=== PATIENT | female | born 2000 | race Two or more races ===

== ENCOUNTER 2023-11-05 17:20 | Emergency (ER) | payer OTHER ==
[~2023-11-05] VITALS: Ht 167.6 cm; Wt 71.2 kg
[2023-11-05 18:26] LABS: HEMATOCRIT 32.1 % (36.0-45.00); MEAN CELL VOLUME 79.6 fL (80.00-100.00); MEAN CORPUSCULAR HEMOGLOBIN 27.2 pg (27.00-32.0); MEAN CORPUSCULAR HGB CONC 34.1 g/dl (32.0-36.0); PLATELET COUNT 199 K/uL (150-450); RED BLOOD COUNT 4.03 M/uL (4.00-6.00); RED CELL DISTRIBUTION WIDTH 13.6 % (11.5-14.5)
[2023-11-05 18:34] LABS: URINE APPEARANCE Clear; URINE BACTERIA 648.7 uL (0.0-1933); URINE BILIRRUBIN Negative (NEGATIVE); URINE BLOOD Negative; URINE COLOR Yellow; URINE GLUCOSE Negative (NEGATIVE); URINE LEUKOCYTE Trace; URINE NITRATE Negative; URINE PROTEIN Negative (NEGATIVE); URINE RBC 10.2 uL (0.0-20.8); URINE WBC 6.3 uL (0.0-23.2)
[2023-11-05 18:59] LABS: CALCIUM 8.8 mg/dL (8.5-10.1); CREATININE SERUM 0.45 mg/dL (0.55-1.02); GFR 172.66; POTASSIUM 3.52 mEq/L (3.5-5.1)
== END 2023-11-06 01:58 | disposition home or self-care (01) ==
LOC: ER 17:21
PROVIDERS: Emergency Medicine
DX: O99.611 Diseases of the digestive system complicating pregnancy, first trimester (principal); K92.89 Other specified diseases of the digestive system; Z91.013 Allergy to seafood; Z91.040 Latex allergy status; Z3A.12 12 weeks gestation of pregnancy

== ENCOUNTER 2023-12-11 13:49 | Outpatient (CLI) | payer OTHER | END 2023-12-11 13:52 | disposition home or self-care (01) | LOC: PRENATAL 13:49 | PROVIDERS: ATTEND Obstetrics & Gynecology Maternal & Fetal Medicine | DX: O36.80X0 Pregnancy with inconclusive fetal viability, not applicable or unspecified (principal); Z36.82 Encounter for antenatal screening for nuchal translucency; Z36.9 Encounter for antenatal screening, unspecified; Z3A.14 14 weeks gestation of pregnancy ==

== ENCOUNTER 2024-01-11 10:15 | Emergency (ER) | payer OTHER ==
[~2024-01-11] VITALS: Ht 167.6 cm; Wt 75.7 kg
[2024-01-11 11:37] LABS: HEMATOCRIT 30.6 % (36.0-45.00); HEMOGLOBIN 10.4 g/dL (12.0-15.00); MEAN CORPUSCULAR HEMOGLOBIN 27.3 pg (27.00-32.0); MEAN CORPUSCULAR HGB CONC 34.1 g/dl (32.0-36.0); PLATELET COUNT 169 K/uL (150-450); RED BLOOD COUNT 3.82 M/uL (4.00-6.00)
[2024-01-11 11:49] LABS: CALCIUM 9.3 mg/dL (8.5-10.1); CREATININE SERUM 0.47 mg/dL (0.55-1.02); GFR 164.21; POTASSIUM 3.66 mEq/L (3.5-5.1)
== END 2024-01-11 13:32 | disposition home or self-care (01) ==
LOC: ER
DX: O98.512 Other viral diseases complicating pregnancy, second trimester (principal); J32.9 Chronic sinusitis, unspecified; Z91.041 Radiographic dye allergy status; Z91.013 Allergy to seafood; Z3A.19 19 weeks gestation of pregnancy; Z20.822 Contact with and (suspected) exposure to COVID-19

== ENCOUNTER 2024-01-20 08:08 | Outpatient (CLI) | payer OTHER | END 2024-01-20 08:09 | disposition home or self-care (01) | LOC: PRENATAL 08:08 | PROVIDERS: ATTEND Obstetrics & Gynecology Maternal & Fetal Medicine | DX: O35.9XX0 Maternal care for (suspected) fetal abnormality and damage, unspecified, not applicable or unspecified (principal); O35.3XX0 Maternal care for (suspected) damage to fetus from viral disease in mother, not applicable or unspecified; O44.00 Complete placenta previa NOS or without hemorrhage, unspecified trimester; Z3A.20 20 weeks gestation of pregnancy ==

== ENCOUNTER 2024-02-04 12:28 | Outpatient (CLI) | payer OTHER ==
[~2024-02-04] VITALS: Ht 167.6 cm; Wt 78.5 kg
[2024-02-04] MEDS ORDERED: RINGERS SOLUTION,LACTATED 1,000 ML IV SCH ×2 (12:45→13:00)
[2024-02-04] MEDS ORDERED: PRENATAL TABLE1 EAC4 PO (12:56)
[2024-02-04 13:09] LABS: URINE APPEARANCE Clear; URINE BILIRRUBIN Negative (NEGATIVE); URINE BLOOD Negative; URINE COLOR Yellow; URINE GLUCOSE Negative (NEGATIVE); URINE LEUKOCYTE Small; URINE NITRATE Negative; URINE PROTEIN Negative (NEGATIVE); URINE UROBILINOGEN 0.2 E.U./dl
[2024-02-04 13:12] LABS: URINE BACTERIA 3814.8 uL (0.0-1933); URINE EPITHELIAL CELLS 25.3 uL (0.0-38.8); URINE RBC 8.6 uL (0.0-20.8)
[2024-02-04 13:15] LABS: HEMATOCRIT 30.3 % (36.0-45.00); HEMOGLOBIN 10.4 g/dL (12.0-15.00); MEAN CELL VOLUME 80.6 fL (80.00-100.00); MEAN CORPUSCULAR HEMOGLOBIN 27.5 pg (27.00-32.0); MEAN CORPUSCULAR HGB CONC 34.2 g/dl (32.0-36.0); PLATELET COUNT 200 K/uL (150-450); RED BLOOD COUNT 3.77 M/uL (4.00-6.00); RED CELL DISTRIBUTION WIDTH 13.7 % (11.5-14.5)
== END 2024-02-05 09:46 | disposition home or self-care (01) ==
LOC: OBS/DEL 12:28
PROVIDERS: Obstetrics & Gynecology; ATTEND Obstetrics & Gynecology
DX: O26.892 Other specified pregnancy related conditions, second trimester (principal); Z3A.22 22 weeks gestation of pregnancy; O26.849 Uterine size-date discrepancy, unspecified trimester; O60.00 Preterm labor without delivery, unspecified trimester

== ENCOUNTER 2024-05-13 16:04 | Inpatient (IN) | payer OTHER ==
[~2024-05-13] VITALS: Ht 167.6 cm; Wt 2.3 kg
[~2024-05-13 16:04] MED LIST: PRENATAL TABLE1 EAC4 PO
[2024-05-13] MEDS ORDERED: PRENATABS RX T1 EACH PO (16:14)
[2024-05-13] MEDS ORDERED: AMPICILLIN SODIUM 2,000 MG VIAL ONE (16:52)
[2024-05-13 17:01] LABS: HEMOGLOBIN 10.7 g/dL (12.0-15.00); MEAN CORPUSCULAR HEMOGLOBIN 26.7 pg (27.00-32.0); MEAN CORPUSCULAR HGB CONC 33.4 g/dl (32.0-36.0); PLATELET COUNT 147 K/uL (150-450); RED BLOOD COUNT 4.01 M/uL (4.00-6.00); RED CELL DISTRIBUTION WIDTH 14.5 % (11.5-14.5)
[2024-05-13 17:01] LABS: PH,URINE 6.5 (5.0-8.0); URINE APPEARANCE Cloudy; URINE BILIRRUBIN Negative (NEGATIVE); URINE BLOOD Negative; URINE COLOR Yellow; URINE GLUCOSE Negative (NEGATIVE); URINE LEUKOCYTE Small; URINE NITRATE Negative; URINE PROTEIN Negative (NEGATIVE); URINE UROBILINOGEN 0.2 E.U./dl
[2024-05-13 17:05] LABS: URINE EPITHELIAL CELLS 44.3 uL (0.0-38.8); URINE RBC 14.5 uL (0.0-20.8); URINE WBC 65.7 uL (0.0-23.2)
[2024-05-13 17:21] LABS: INR 0.95; PARTIAL THROMBOPLASTIN TIME 28.2 SECONDS (22.0-34.0)
[2024-05-13 17:22] LABS: CALCIUM 9.2 mg/dL (8.5-10.1); CREATININE SERUM 0.42 mg/dL (0.55-1.02); GFR 185.36
[2024-05-13 17:27] LABS: URINE MUCUS SCANT; URINE YEAST FEW /hpf
[2024-05-13] MEDS ORDERED: RINGERS SOLUTION,LACTATED 1,000 ML IV SCH ×2 (17:30→22:45)
[2024-05-13] MEDS ORDERED: CEFAZOLIN SODIUM 1,000 MG VIAL IV SCH (17:30)
[2024-05-13] MEDS ORDERED: AMPICILLIN SODIUM 2,000 MG VIAL IV ONE (17:30)
[2024-05-13] MEDS ORDERED: OXYTOCIN 10 UNITS/ML VIAL ONE (20:13)
[2024-05-13] MEDS ORDERED: ERYTHROMYCIN BASE 1 GM TUBE OP ONE (20:13)
[2024-05-13] MEDS ORDERED: AMPICILLIN SODIUM 1,000 MG VIAL IV SCH (21:00)
[2024-05-13] MEDS ORDERED: MORPHINE SULFATE 4 MG in 0.9 % SODIUM CHLORIDE 9 ML IV PRN (22:30)
[2024-05-13] MEDS ORDERED: ONDANSETRON HCL 2 MG/ML VIAL IV PRN (22:30)
[2024-05-13] MEDS ORDERED: MEPERIDINE HCL/PF 25 MG/ML VIAL IV PRN (22:30)
[2024-05-13] MEDS ORDERED: MORPHINE SULFATE 4 MG/ML CARTRIDGE IV PRN (22:30)
[2024-05-13] MEDS ORDERED: OXYTOCIN 1,000 ML IV SCH (22:45)
[2024-05-13 22:47] LABS: ABG PH 7.251 (7.35-7.45); ABG pCO2 59.8 mmHg (35-45)
[2024-05-13 22:48] LABS: ABG PO2 10.9 mmHg (80-100); BASE EXCESS -2.7 mmol/l; BICARBONATE 25.7 mmol/l (23-25); SaO2 8.5 %; Tco2 27.5 mmol/l; o2 21 %
[2024-05-14] MEDS ORDERED: OXYTOCIN 10 UNITS/ML VIAL ONE (02:40)
[2024-05-14 03:53] LABS: HEMATOCRIT 31.5 % (36.0-45.00); MEAN CELL VOLUME 80.5 fL (80.00-100.00); RED BLOOD COUNT 3.92 M/uL (4.00-6.00); RED CELL DISTRIBUTION WIDTH 14.7 % (11.5-14.5)
[2024-05-14 03:57] LABS: HEMOGLOBIN 10.7 g/dL (12.0-15.00); MEAN CORPUSCULAR HEMOGLOBIN 27.2 pg (27.00-32.0); PLATELET COUNT 137 K/uL (150-450)
[2024-05-14] MEDS ORDERED: SIMETHICONE 125 MG CAPSULE PO SCH (09:00)
[2024-05-14] MEDS ORDERED: DOCUSATE SODIUM 100MG CAP PO SCH (09:00)
[2024-05-14] MEDS ORDERED: IBUprofen 800 MG TABLET PO PRN (09:00)
== END 2024-05-16 14:36 | disposition home or self-care (01) | DRG 788 ==
LOC: LDR 16:04 → OB/GYN 16:04 → O/R 16:04 → OB/GYN 22:35
PROVIDERS: ADMIT Obstetrics & Gynecology; ATTEND Obstetrics & Gynecology
PROC: 4A1HXCZ Monitoring of Products of Conception, Cardiac Rate, External Approach (ICD-10-PCS; 2024-05-13)
PROC: 10D00Z1 Extraction of Products of Conception, Low, Open Approach (ICD-10-PCS; principal; 2024-05-13 22:00)
DX: O60.14X0 Preterm labor third trimester with preterm delivery third trimester, not applicable or unspecified (principal); Z3A.36 36 weeks gestation of pregnancy; Z37.0 Single live birth; Z20.822 Contact with and (suspected) exposure to COVID-19